=== PATIENT | male | born 2000 | race Asian ===

== ENCOUNTER 2022-05-07 11:28 | Emergency (ER) | payer OTHER ==
[~2022-05-07] VITALS: Ht 175.3 cm; Wt 83.3 kg
[2022-05-07] MEDS ORDERED: KETO10TAB PO (14:54)
[2022-05-07] MEDS ORDERED: CYCL-707 PO (14:54)
[2022-05-07] MEDS ORDERED: KETOROLAC 30 MG/ML 1ML VIAL IM ONE (14:55)
[2022-05-07] MEDS ORDERED: ACETAMINOPHEN TAB 650MG DOSE (2X325MG) PO ONE (14:55)
[2022-05-07 15:02] VITALS: BP 139/65
== END 2022-05-07 15:11 | disposition home or self-care (01) ==
LOC: M ED 11:28
DX: M54.50 Low back pain, unspecified (principal); M62.830 Muscle spasm of back
CPT/HCPCS: 96372; 99283; J1885